=== PATIENT | male | born 1985 | race African-American/Black ===

== ENCOUNTER 2023-09-14 12:15 | Inpatient (IN) | payer OTHER ==
[2023-09-14 12:43] VITALS: BMI 20.8
[2023-09-14] MEDS ORDERED: ONDANSETRON *ODT* 4 MG TABLET SL PRN (12:55)
[2023-09-14] MEDS ORDERED: LOPERAMIDE HCL 2 MG CAPSULE PO PRN (12:55)
[2023-09-14] MEDS ORDERED: BENZOCAINE/MENTHOL (CHLORASEPTIC ) LOZENGE MM PRN (12:55)
[2023-09-14] MEDS ORDERED: BISMUTH SUBSALICYLATE 524 MG/30 ML PO PRN (12:55)
[2023-09-14] MEDS ORDERED: ACETAMINOPHEN 325 MG TABLET (FP) PO PRN (12:55)
[2023-09-14] MEDS ORDERED: POLYETHYLENE GLYCOL (HEALTHYLAX) 3350 17 GM PACKET PO PRN (12:55)
[2023-09-14] MEDS ORDERED: IBUPROFEN 600 MG TABLET (FP) PO PRN (12:55)
[2023-09-14] MEDS ORDERED: BENZONATATE 200 MG CAPSULE PO PRN (12:55)
[2023-09-14] MEDS ORDERED: MAGNESIUM HYDROX 2400MG/30ML ORAL SUSPENSION 30 ML CUP PO PRN (12:55)
[2023-09-14] MEDS ORDERED: DICYCLOMINE HCL 10 MG CAPSULE PO PRN (12:55)
[2023-09-14] MEDS ORDERED: guaiFENesin 600 MG TABLET.ER (FP) PO PRN (12:55)
[2023-09-14] MEDS ORDERED: IBUPROFEN 400 MG TABLET (FP) PO PRN (12:55)
[2023-09-14] MEDS ORDERED: NICOTINE POLACRILEX 2 MG GUM BUC PRN (12:55)
[2023-09-14] MEDS ORDERED: MAG HYDROX/AL HYDROX/SIMETH 30 ML UNIT-DOSE CUP PO PRN (12:55)
[2023-09-14] MEDS ORDERED: NICOTINE POLACRILEX 2 MG LOZENGE BC PRN (12:55)
[2023-09-14] MEDS ORDERED: chlordiazePOXIDE HCL 25 MG CAPSULE PO PRN (12:57)
[2023-09-14] MEDS ORDERED: levETIRAcetam 500 MG TABLET (FP) PO ONE (13:47)
[2023-09-14] MEDS ORDERED: chlordiazePOXIDE HCL 25 MG CAPSULE ONE (13:47)
[2023-09-14] MEDS: levETIRAcetam 500 MG TABLET (FP) PO SCH (13:48)
[2023-09-14] MEDS: chlordiazePOXIDE HCL 25 MG CAPSULE PO ONE (13:49)
[2023-09-14] MEDS: chlordiazePOXIDE HCL 25 MG CAPSULE PO SCH (17:32)
[2023-09-14] MEDS: THIAMINE 100 MG TABLET PO SCH (22:27)
[2023-09-14] MEDS: MELATONIN 5 MG TABLETS PO SCH (22:27)
[2023-09-15 12:04] LABS: HEMATOCRIT 33.7 % (35.4-49); MCH 30.9 pg (25.7-33.7); MCHC 32.8 g/dl (32.0-35.9); MEAN CELL VOLUME 94.3 fl (80-96); MEAN PLT VOLUME 8.2 fl (7.5-11.1); PLATELET COUNT 218 10^3/uL (134-434); RBC 3.57 M/mm3 (4.00-5.60); RDW 14.9 % (11.9-15.9); WHITE BLOOD COUNT 4.2 K/mm3 (4.0-10.0)
[2023-09-15] MEDS: PRENATAL VITAMINS W/ FOLIC ACID TABLET (FP) PO SCH (12:07)
[2023-09-15 12:08] LABS: CHLORIDE 101 mmol/L (98-107); POTASSIUM 3.6 mmol/L (3.5-5.1); SODIUM 137 mmol/L (136-145)
[2023-09-15 12:12] LABS: CALCIUM 9.1 mg/dL (8.5-10.1)
[2023-09-15 12:13] LABS: ALBUMIN 3.3 g/dl (3.4-5.0); ANION GAP 7 mmol/L (4-13); BLOOD UREA NITROGEN 11.1 mg/dL (7-18); CO2 30 mmol/L (21-32); GLUCOSE,RANDOM 114 mg/dL (74-106)
[2023-09-15 12:14] LABS: CREATININE 0.7 mg/dL (0.55-1.3); SGPT/ALT 57 U/L (13-61)
[2023-09-15 12:15] LABS: TOT PROT 6.4 g/dl (6.4-8.2)
[2023-09-15 12:16] LABS: BILIRUBIN,TOTAL 0.6 mg/dL (0.2-1); SGOT/AST 94 U/L (15-37)
[2023-09-15 12:17] LABS: ALK PHOS 86 U/L (45-117)
[2023-09-15 16:49] LABS: HIV INTERPRETATION NEGATIVE (NEGATIVE)
[2023-09-16] MEDS: chlordiazePOXIDE HCL 25 MG CAPSULE PO SCH (06:00)
[2023-09-16] MEDS: METHOCARBAMOL 500 MG TABLET PO PRN (22:27)
[2023-09-17] MEDS ORDERED: chlordiazePOXIDE HCL 10 MG CAPSULE PO PRN
[2023-09-17] MEDS: chlordiazePOXIDE HCL 10 MG CAPSULE PO SCH (05:58)
[2023-09-18] MEDS: chlordiazePOXIDE HCL 10 MG CAPSULE PO SCH (05:09)
[2023-09-18 13:11] VITALS: RESP 16
[2023-09-19] MEDS: chlordiazePOXIDE HCL 10 MG CAPSULE PO ONE (05:43)
[2023-09-19 09:28] VITALS: BP 112/77; PULSE 85; TEMP 96.4
== END 2023-09-19 12:53 | disposition home or self-care (01) | DRG 775 ==
LOC: YASAS 12:15 → Y6N 13:47
PROVIDERS: ADMIT Allergy & Immunology; ATTEND Surgery
PROC: HZ2ZZZZ Detoxification Services for Substance Abuse Treatment (ICD-10-PCS; principal; 2023-09-14)
DX: F10.230 Alcohol dependence with withdrawal, uncomplicated (principal); F17.210 Nicotine dependence, cigarettes, uncomplicated; G47.00 Insomnia, unspecified; Z56.0 Unemployment, unspecified
CPT/HCPCS: 36415; 80053; 80305; 80307; 85027; 86780; 86803; 87389; 93005; 93010